=== PATIENT | female | born 1950 | race Caucasian/White ===

== ENCOUNTER 2019-02-03 12:10 | Emergency (ER) | payer SELFPAY ==
[~2019-02-03] VITALS: Ht 157.5 cm; Wt 59.0 kg
[2019-02-03 12:23] VITALS: Ht 157.5 cm; Wt 59.0 kg
[2019-02-03 14:03] VITALS: BP 148/81
== END 2019-02-03 14:30 | disposition home or self-care (01) ==
LOC: ED 12:10
DX: N39.0 Urinary tract infection, site not specified (principal); I10 Essential (primary) hypertension; E11.9 Type 2 diabetes mellitus without complications; Z98.890 Other specified postprocedural states
CPT/HCPCS: J0696

== ENCOUNTER 2019-05-25 16:29 | Emergency (ER) | payer OTHER ==
[~2019-05-25] VITALS: Ht 157.5 cm; Wt 72.6 kg
[2019-05-25 16:42] VITALS: Ht 157.5 cm; Wt 72.6 kg
[2019-05-25 16:51] LABS: BASOPHIL % 0.1 % (0-2); PLATELET COUNT 312 x10^3mcL (130-400)
[2019-05-25 16:52] LABS: RED CELL DISTRIBUTION WIDTH 16.6 % (11.5-14.5)
[2019-05-25 16:59] LABS: CALCIUM 8.4 mg/dL (8.5-10.1); CARBON DIOXIDE 28.5 mmol/L (21-32); CHLORIDE SERUM 105 mmol/L (98-107); CREATININE SERUM 0.9 mg/dL (0.6-1.0); GFR1 > 60 mL/min; GLUCOSE SERUM 87 mg/dL (74-106); POTASSIUM SERUM 3.8 mmol/L (3.5-5.1); SODIUM SERUM 141 mmol/L (136-145)
[2019-05-25 17:04] LABS: ALKALINE PHOSPHATASE 70 U/L (46-116); ALT/SGPT 19 U/L (14-59); AST/SGOT 21 U/L (15-37); BILIRUBIN TOTAL 0.4 mg/dL (0.20-1.00); TOTAL PROTEIN, SERUM 7.3 g/dL (6.4-8.2)
[2019-05-25 17:08] LABS: ALBUMIN 3.1 g/dL (3.4-5.0)
[2019-05-25 17:58] LABS: UA SPECIFIC GRAVITY 1.015 (1.005-1.035); microscopic required? YES; urine erythrocyte NEGATIVE (NEGATIVE)
[2019-05-25 19:12] VITALS: BP 175/69
== END 2019-05-25 19:12 | disposition home or self-care (01) ==
LOC: ED 16:29
PROVIDERS: Emergency Medicine
DX: E11.649 Type 2 diabetes mellitus with hypoglycemia without coma (principal); E78.00 Pure hypercholesterolemia, unspecified
CPT/HCPCS: 82962; J7030; J7042; Q0092

== ENCOUNTER 2019-12-26 16:06 | Emergency (ER) | payer OTHER ==
[~2019-12-26] VITALS: Ht 157.5 cm; Wt 70.3 kg
[2019-12-26 16:14] VITALS: Ht 157.5 cm; Wt 70.3 kg
[2019-12-26 17:18] LABS: BASOPHIL % 0.2 % (0-2); PLATELET COUNT 210 x10^3mcL (130-400); RED CELL DISTRIBUTION WIDTH 17.5 % (11.5-14.5); T3 TOTAL 1.01 ng/mL
[2019-12-26 17:23] LABS: CALCIUM 9.4 mg/dL (8.5-10.1); CARBON DIOXIDE 28.4 mmol/L (21-32)
[2019-12-26 17:27] LABS: ALBUMIN 3.8 g/dL (3.4-5.0); BILIRUBIN TOTAL 0.33 mg/dL (0.20-1.00); CHOLESTEROL/HDL RATIO 3.7; TOTAL PROTEIN, SERUM 7.5 g/dL (6.4-8.2)
[2019-12-26 17:39] LABS: FREE T4 1.15 ng/dL (0.76-1.46); FREE THYROXINE INDEX 3.3 ug/dL (1.4-4.5); T4(THYROXINE) 9.9 ug/dL (4.7-13.3)
[2019-12-26 19:04] LABS: microscopic required? YES; urine erythrocyte 2+ (NEGATIVE)
[2019-12-26 19:14] VITALS: BP 178/83
== END 2019-12-26 19:14 | disposition short-term general hospital (02) ==
LOC: ED 16:06
PROVIDERS: Specialist
DX: S06.5X0A Traumatic subdural hemorrhage without loss of consciousness, initial encounter (principal); I10 Essential (primary) hypertension; E11.9 Type 2 diabetes mellitus without complications; X58.XXXA Exposure to other specified factors, initial encounter; Y93.89 Activity, other specified; Y92.89 Other specified places as the place of occurrence of the external cause; Y99.8 Other external cause status
CPT/HCPCS: 83880; 84439; J7030; Q0092

== ENCOUNTER 2020-03-02 16:44 | Observation (INO) | payer OTHER ==
[~2020-03-02] VITALS: Ht 157.5 cm; Wt 81.6 kg
[2020-03-02 16:50] VITALS: Ht 157.5 cm; Wt 81.6 kg
[2020-03-02 18:24] LABS: BASOPHIL % 0.5 % (0-2); PLATELET COUNT 376 x10^3mcL (130-400)
[2020-03-02 18:33] LABS: RED CELL DISTRIBUTION WIDTH 20.4 % (11.5-14.5)
[2020-03-02 18:35] LABS: CALCIUM 9.6 mg/dL (8.5-10.1); CHLORIDE SERUM 105 mmol/L (98-107); CREATININE SERUM 1.2 mg/dL (0.6-1.0); GLUCOSE SERUM 230 mg/dL (74-106); POTASSIUM SERUM 4.1 mmol/L (3.5-5.1); SODIUM SERUM 141 mmol/L (136-145)
[2020-03-02 18:48] LABS: rbc morphology (normal/abnorm) ABNORMAL (NORMAL)
[2020-03-02 18:54] LABS: ALKALINE PHOSPHATASE 57 U/L (46-116); ALT/SGPT 14 U/L (14-59); AST/SGOT 11 U/L (15-37); BILIRUBIN TOTAL 0.3 mg/dL (0.20-1.00); CHOLESTEROL 138 mg/dL (<200); HDL CHOLESTEROL 44 mg/dL (40-60); LIPASE 121 IU/L (73-393); T4(THYROXINE) 7.9 ug/dL (4.7-13.3)
[2020-03-03] VITALS (7 sets, daily range): BP systolic 150–184; BP diastolic 66–89
[2020-03-03 08:04] LABS: BASOPHIL % 0.3 % (0-2); PLATELET COUNT 306 x10^3mcL (130-400)
[2020-03-03 08:17] LABS: UA SPECIFIC GRAVITY 1.025 (1.005-1.035); microscopic required? YES; urine erythrocyte 2+ (NEGATIVE)
[2020-03-03 08:20] LABS: CHOLESTEROL/HDL RATIO 3.4
[2020-03-03 08:31] LABS: AMPHETAMINE QUAL UR NONE DETECTED (See below)
[2020-03-03 08:50] LABS: CALCIUM 8.7 mg/dL (8.5-10.1); CARBON DIOXIDE 22.5 mmol/L (21-32); CHLORIDE SERUM 107 mmol/L (98-107); CREATININE SERUM 0.9 mg/dL (0.6-1.0); GLUCOSE SERUM 207 mg/dL (74-106); POTASSIUM SERUM 3.8 mmol/L (3.5-5.1); SODIUM SERUM 141 mmol/L (136-145)
[2020-03-03 09:02] LABS: RED CELL DISTRIBUTION WIDTH 20.1 % (11.5-14.5)
[2020-03-04] VITALS (7 sets, daily range): BP systolic 139–187; BP diastolic 54–76
[2020-03-04 07:09] LABS: BASOPHIL % 0.1 % (0-2); PLATELET COUNT 318 x10^3mcL (130-400)
[2020-03-04 07:26] LABS: RED CELL DISTRIBUTION WIDTH 20.3 % (11.5-14.5)
[2020-03-04 07:49] LABS: ALBUMIN 3.5 g/dL (3.4-5.0); ALKALINE PHOSPHATASE 54 U/L (46-116); ALT/SGPT 14 U/L (14-59); AST/SGOT 12 U/L (15-37); BILIRUBIN TOTAL 0.34 mg/dL (0.20-1.00); CALCIUM 9.3 mg/dL (8.5-10.1); CARBON DIOXIDE 22.7 mmol/L (21-32); CHLORIDE SERUM 102 mmol/L (98-107); GLUCOSE SERUM 265 mg/dL (74-106); LIPASE 150 IU/L (73-393); MAGNESIUM 1.6 mg/dL (1.8-2.4); POTASSIUM SERUM 3.1 mmol/L (3.5-5.1); SODIUM SERUM 138 mmol/L (136-145); TOTAL PROTEIN, SERUM 7.3 g/dL (6.4-8.2)
[2020-03-05] VITALS (7 sets, daily range): BP systolic 149–198; BP diastolic 50–94
[2020-03-05 08:51] LABS: CALCIUM 8.8 mg/dL (8.5-10.1); CARBON DIOXIDE 19.9 mmol/L (21-32); CHLORIDE SERUM 108 mmol/L (98-107); CREATININE SERUM 1.3 mg/dL (0.6-1.0); GLUCOSE SERUM 121 mg/dL (74-106); MAGNESIUM 2.3 mg/dL (1.8-2.4); POTASSIUM SERUM 3.7 mmol/L (3.5-5.1); SODIUM SERUM 142 mmol/L (136-145)
[2020-03-05 09:10] LABS: BASOPHIL % 0 % (0-2); RED CELL DISTRIBUTION WIDTH 20.6 % (11.5-14.5)
[2020-03-05 09:32] LABS: PLATELET COUNT 304 x10^3mcL (130-400)
[2020-03-06 06:06] VITALS: BP 176/98
[2020-03-06 07:33] LABS: BASOPHIL % 0.4 % (0-2); PLATELET COUNT 347 x10^3mcL (130-400)
[2020-03-06 07:49] LABS: CALCIUM 8.8 mg/dL (8.5-10.1); CARBON DIOXIDE 19.6 mmol/L (21-32); CHLORIDE SERUM 104 mmol/L (98-107); CREATININE SERUM 1.1 mg/dL (0.6-1.0); GLUCOSE SERUM 129 mg/dL (74-106); POTASSIUM SERUM 3.4 mmol/L (3.5-5.1); SODIUM SERUM 139 mmol/L (136-145)
[2020-03-06 08:06] LABS: RED CELL DISTRIBUTION WIDTH 21.2 % (11.5-14.5)
[2020-03-06 08:25] VITALS: BP 120/72
[2020-03-06 12:19] VITALS: BP 153/72
[2020-03-06] MEDS ORDERED: MOT800 PO (19:10)
== END 2020-03-06 17:40 | disposition home or self-care (01) ==
LOC: ED 16:44 → DU 22:45
PROVIDERS: Emergency Medicine; Hospitalist; Internal Medicine Pulmonary Disease; ADMIT Internal Medicine Pulmonary Disease; ATTEND Internal Medicine Pulmonary Disease
DX: K35.80 Unspecified acute appendicitis (principal); I10 Essential (primary) hypertension; E78.5 Hyperlipidemia, unspecified; E11.9 Type 2 diabetes mellitus without complications; R10.13 Epigastric pain; R06.02 Shortness of breath; K80.20 Calculus of gallbladder without cholecystitis without obstruction; D64.9 Anemia, unspecified; M48.54XA Collapsed vertebra, not elsewhere classified, thoracic region, initial encounter for fracture; N39.0 Urinary tract infection, site not specified; Z79.899 Other long term (current) drug therapy
CPT/HCPCS: 82962; G0378; J0330; J0360; J0694; J0696; J1170; J1815; J2270; J2405; J2704; J2765; J3010; J3475; J3480; J3490; J7030; J7050; Q0092; Q9967